=== PATIENT | male | born 1995 | race Caucasian/White ===

== ENCOUNTER 2018-12-07 08:38 | Emergency (ER) | payer SELFPAY ==
[~2018-12-07] VITALS: Ht 172.7 cm; Wt 129.2 kg
[2018-12-07 08:45] VITALS: BP 193/97; PULSE 96; RESP 20; Ht 172.7 cm; Wt 129.2 kg
[2018-12-07] MEDS ORDERED: ONDANSETRON 4 MG INJ IV STA (09:59)
[2018-12-07] MEDS ORDERED: SOD CHLORIDE 0.9% 1,000 ML IV ONE ×2 (10:00→12:30)
[2018-12-07] MEDS ORDERED: DIPHENHYDRAMINE 50 MG INJ IV ONE (11:00)
[2018-12-07] MEDS ORDERED: METOCLOPRAMIDE 10 MG INJ IV ONE (11:00)
[2018-12-07] MEDS ORDERED: LORAZEPAM 2 MG INJ IV ONE (12:30)
[2018-12-07] MEDS ORDERED: LORA-441 PO (14:33)
--- NOTE | 2018-12-07 16:31 | ERD ---
ER Documentation Chief Complaint Chief Complaint Complains of comiting after using marijauna last night HPI 23-year-old male patient with a past medical history of cannabis hyperemesis syndrome presents to the ED complaining of vomiting that started last night after using marijuana. Patient reports hot showers do not help with the symptoms. Denies any fever, chills, chest pain, shortness of breath. Reports that his abdominal pain is slightly diffuse and due to the vomiting. Denies any dysuria, urgency, frequency, hematuria. ROS All systems reviewed and are negative except as per history of present illness. Medications Home Meds Active Scripts Lorazepam* (Ativan*) 0.5 Mg Tablet, 0.5 MG PO Q8, #6 TAB Prov:ANAIS INGRAM PA-C 12/07/18 Allergies Allergies: Coded Allergies: No Known Allergy (Unverified , 12/07/18) PMhx/Soc History of Surgery: Yes (TONSILLECTOMY) Anesthesia Reaction: No Hx Neurological Disorder: No Hx Respiratory Disorders: Yes (ASTHMA) Hx Cardiac Disorders: No Hx Psychiatric Problems: Yes (DEPRESSION,ANXIETY) Hx Miscellaneous Medical Probl: No Hx Alcohol Use: Yes (OCCASSIONAL) Hx Substance Use: Yes (CANNABINOID) Smoking Status: Current some day smoker Physical Exam Vitals Vital Signs Date Temp Pulse Resp B/P (MAP) Pulse Ox O2 O2 Flow FiO2 Time Delivery Rate 12/07/18 98.0 96 20 193/97 100 08:45 (129) Physical Exam Const: [id number], well-nourished. In no acute distress. Head: Atraumatic, normocephalic Eyes: Normal Conjunctiva without injection. No purulent discharge. ENT: Normal external ear, nose. Moist oropharynx without tonsillar exudates. Non-erythematous pharynx. Uvula midline. No drooling. No trismus. Neck: No cervical midline tenderness. Full range of motion. No meningismus. No cervical lymphadenopathy. No JVD. Resp: Clear to auscultation bilaterally. No wheezing, rhonchi, rales, or crackles. No accessory muscle use. No retractions. Cardio: Regular rate and rhythm. No murmurs, rubs or gallops. Abd: Soft, nontender, non distended. Normal bowel sounds. No palpable masses. No rebound tenderness. No guarding. Negative McBurney's point. Negative psoas sign. Negative obturator sign. Skin: No petechiae or rashes Back: No midline tenderness. No CVA tenderness. Ext: No cyanosis, or edema. Neur: Awake and alert. Normal gait. Normal coordination. Psych: Normal Mood and Affect Results 24 hrs Laboratory Tests Test 12/07/18 10:05 White Blood Count 23.0 10^3/ul Red Blood Count 5.57 10^6/ul Hemoglobin 15.2 g/dl Hematocrit 44.8 % Mean Corpuscular Volume 80.4 fl Mean Corpuscular Hemoglobin 27.3 pg Mean Corpuscular Hemoglobin Concent 33.9 g/dl Red Cell Distribution Width 13.1 % Platelet Count 385 10^3/UL Mean Platelet Volume 10.5 fl Immature Granulocytes % 1.300 % Neutrophils % 73.4 % Lymphocytes % 16.8 % Monocytes % 7.6 % Eosinophils % 0.5 % Basophils % 0.4 % Nucleated Red Blood Cells % 0.0 /100WBC Immature Granulocytes # 0.310 10^3/ul Neutrophils # 16.9 10^3/ul Lymphocytes # 3.9 10^3/ul Monocytes # 1.7 10^3/ul Eosinophils # 0.1 10^3/ul Basophils # 0.1 10^3/ul Nucleated Red Blood Cells # 0.0 10^3/ul Urine Color STRAW Urine Clarity CLEAR Urine pH 5.0 Urine Specific Aptos 1.019 Urine Ketones 1+ mg/dL Urine Nitrite NEGATIVE mg/dL Urine Bilirubin NEGATIVE mg/dL Urine Urobilinogen NEGATIVE mg/dL Urine Leukocyte Esterase NEGATIVE Celine/ul Urine Microscopic RBC 0 /HPF Urine Microscopic WBC 0 /HPF Urine Hemoglobin 1+ mg/dL Urine Glucose NEGATIVE mg/dL Urine Total Protein NEGATIVE mg/dl Sodium Level 144 mmol/L Potassium Level 3.7 mmol/L Chloride Level 106 mmol/L Carbon Dioxide Level 15 mmol/L Anion Gap 23 Blood Urea Nitrogen 12 mg/dl Creatinine 0.67 mg/dl Est Glomerular Filtrat Rate mL/min > 60 mL/min Glucose Level 222 mg/dl Calcium Level 10.6 mg/dl Total Bilirubin 0.2 mg/dl Direct Bilirubin 0.00 mg/dl Indirect Bilirubin 0.2 mg/dl Aspartate Amino Transf (AST/SGOT) 30 IU/L Alanine Aminotransferase (ALT/SGPT) 31 IU/L Alkaline Phosphatase 114 IU/L Total Protein 8.3 g/dl Albumin 5.3 g/dl Globulin 3.00 g/dl Albumin/Globulin Ratio 1.76 Lipase 253 U/L Current Medications Medications Dose Sig/Sawyer Start Time Status Last (Trade) Ordered Route PRN Stop Time Admin Dose Reason Admin Ondansetron 4 mg ONCE STAT 12/07/18 DC 12/07/18 HCl (Zofran IV 09:59 10:11 Inj) 12/07/18 10:01 Sodium 1,000 ml @ Q1H ONCE 12/07/18 DC 12/07/18 Chloride 1,000 mls/hr IV 10:00 10:11 12/07/18 10:59 10 mg ONCE ONCE 12/07/18 DC 12/07/18 Metoclopramid IV 11:00 11:00 e HCl 12/07/18 11:01 (Reglan) 25 mg ONCE ONCE 12/07/18 DC 12/07/18 Diphenhydrami IV 11:00 11:00 ne HCl 12/07/18 11:01 (Benadryl) Sodium 1,000 ml @ Q1H ONCE 12/07/18 DC 12/07/18 Chloride 1,000 mls/hr IV 12:30 12:28 12/07/18 13:29 Lorazepam 1 mg ONCE ONCE 12/07/18 DC 12/07/18 (Ativan) IV 12:30 12:25 12/07/18 12:31 Procedures/MDM 23-year-old male patient with a past medical history of cannabis hyperemesis syndrome presents the ED complaining of vomiting that started last night. Patient is afebrile and nontoxic-appearing. Patient was initially given Zofran, Reglan and Benadryl with slight improvement of his symptoms. Patient was then given Ativan 1 mg IV with 2 L normal saline with improvement of his symptoms. CBC: No leukocytosis. No e/o of systemic infection. No e/o anemia. CMP: No e/o alkalosis, renal failure, diabetic ketoacidosis, liver disease. Some slight metabolic acidosis noted due to vomiting however patient hydrated and feels better. Patient has been observed here for 6 hours. Patient tolerated oral intake. Patient had a successful p.o. challenge. Lipase within normal limits. Patient has cannabis hyperemesis syndrome. Shows some dehydration however was given 2 L normal saline with improvement of his symptoms. Low suspicion for testicular torsion, gastritis, GERD, peptic ulcer disease, cholecystitis, choledocholithiasis, cholangitis, pancreatitis, appendicitis, bowel obstruction, ileus, volvulus, nephrolithiasis, pyelonephritis, hepatitis, perforated viscus, diverticulitis, abdominal hernia, acute abdomen, mesenteric ischemia or other emergent conditions. Discussed with my supervising physician, Dr. Ramon who agreed with the management discharge plan. Diagnosis: Cannabis hyperemesis syndrome Discharge medications: Ativan Follow up with primary care physician in 1-2 days. Instructed patient to return to the ED sooner for any worsening symptoms. Patient's questions were answered. Patient is hemodynamically stable. Patient understood and agreed with discharge plan. Patient discharged stable. Disclaimer: Inadvertent spelling and grammatical errors are likely due to EHR/dictation software use and do not reflect on the overall quality of patient care. Also, please note that the electronic time recorded on this note does not necessarily reflect the actual time of the patient encounter. Departure Diagnosis: Primary Impression: Cannabis hyperemesis syndrome concurrent with and due to canna... Condition: Stable Patient Instructions: Marijuana Abuse, Vomiting (6Y-Adult) Referrals: COMMUNITY CLINICS YOU HAVE RECEIVED A MEDICAL SCREENING EXAM AND THE RESULTS INDICATE THAT YOU DO NOT HAVE A CONDITION THAT REQUIRES URGENT TREATMENT IN THE EMERGENCY DEPARTMENT. FURTHER EVALUATION AND TREATMENT OF YOUR CONDITION CAN WAIT UNTIL YOU ARE SEEN IN YOUR DOCTORS OFFICE WITHIN THE NEXT 1-2 DAYS. IT IS YOUR RESPONSIBILITY TO MAKE AN APPOINTMENT FOR FOLOW-UP CARE. IF YOU HAVE A PRIMARY DOCTOR --you should call your primary doctor and schedule an appointment IF YOU DO NOT HAVE A PRIMARY DOCTOR YOU CAN CALL OUR PHYSICIAN REFERRAL HOTLINE AT IF YOU CAN NOT AFFORD TO SEE A PHYSICIAN YOU CAN CHOSE FROM THE FOLLOWING [facility] CLINICS [facility] [address] [facility] [address] [facility]. [facility] [address] [facility] [address] [facility] [address] [facility] [address] [facility]. [facility] YOU HAVE RECEIVED A MEDICAL SCREENING EXAM AND THE RESULTS INDICATE THAT YOU DO NOT HAVE A CONDITION THAT REQUIRES URGENT TREATMENT IN THE EMERGENCY DEPARTMENT. FURTHER EVALUATION AND TREATMENT OF YOUR CONDITION CAN WAIT UNTIL YOU ARE SEEN IN YOUR DOCTORS OFFICE WITHIN THE NEXT 1-2 DAYS. IT IS YOUR RESPONSIBILITY TO MAKE AN APPOINTMENT FOR FOLOW-UP CARE. IF YOU HAVE A PRIMARY DOCTOR --you should call your primary doctor and schedule and appointment IF YOU DO NOT HAVE A PRIMARY DOCTOR YOU CAN CALL OUR PHYSICIAN REFERRAL HOTLINE AT . IF YOU CAN NOT AFFORD TO SEE A PHYSICIAN YOU CAN CHOSE FROM THE FOLLOWING [facility], [facility] INSTITUTIONS: [facility] [address] [place] [address] [facility] [address] [place] [address] [facility] [address] [place] [address] [facility] Additional Instructions: Call your primary care doctor TOMORROW for an appointment during the next 2-3 days.See the doctor sooner or return here if your condition worsens before your appointment time. You have been given a medicine which may cause drowsiness.DO NOT DRIVE OR OPERATE DANGEROUS MACHINERY while taking this medicine! ANAIS INGRAM PA-C Dec 07, 2018 16:31
== END 2018-12-07 14:49 | disposition home or self-care (01) ==
LOC: FTE 08:38
DX: F12.90 Cannabis use, unspecified, uncomplicated (principal); J45.909 Unspecified asthma, uncomplicated; F17.210 Nicotine dependence, cigarettes, uncomplicated
CPT/HCPCS: 36415; 80053; 81001; 83690; 85025; 96361; 96374; 96375; 99284; J1200; J2060; J2405; J2765; J7030

== ENCOUNTER 2018-12-07 20:02 | Emergency (ER) | payer SELFPAY ==
[~2018-12-07] VITALS: Wt 122.0 kg
[~2018-12-07 20:02] MED LIST: LORA-441 PO
[2018-12-07] MEDS ORDERED: CAPSAICIN 0.025% 60 GM CR TOP STA ×2 (21:24→21:36)
[2018-12-07] MEDS ORDERED: SOD CHLORIDE 0.9% 1,000 ML IV STA (21:24)
[2018-12-07] MEDS ORDERED: DEXTROSE 5%-0.45% NACL 500 ML BAG IV ONE (21:30)
--- NOTE | 2018-12-07 21:31 | ERD ---
ER Documentation Chief Complaint Chief Complaint NAUSEA AND VOMITING WITH GEN ABD PAIN. NO RELEIF WITH ATIVAN AND ZOFRAN HPI 23-year-old male with no reported past medical surgical history, daily marijuana smoker with history of cannabinoid associated hyperemesis presents with persistent nausea and vomiting as well as generalized abdominal pain. Patient was seen in this ED earlier for similar symptoms and discharge. Patient states he got home took Zofran and Ativan but his symptoms persisted with worsening nonbilious nonbloody vomiting as well as worsening generalized abdominal pain. He denies smoking since he returned home and reports last marijuana use yesterday. Has not been able to hold down any food or liquids and reports not eating all day. ROS All systems reviewed and are negative except as per history of present illness. Medications Home Meds Active Scripts Lorazepam* (Ativan*) 0.5 Mg Tablet, 0.5 MG PO Q8, #6 TAB Prov:ANAIS INGRAM PA-C 12/07/18 Allergies Allergies: Coded Allergies: No Known Allergy (Unverified , 12/07/18) PMhx/Soc History of Surgery: Yes (TONSILLECTOMY) Anesthesia Reaction: No Hx Neurological Disorder: No Hx Respiratory Disorders: Yes (ASTHMA) Hx Cardiac Disorders: No Hx Psychiatric Problems: Yes (DEPRESSION,ANXIETY) Hx Miscellaneous Medical Probl: Yes (CANIBINOID HYPEREMESIS) Hx Alcohol Use: Yes (OCCASSIONAL) Hx Substance Use: Yes (MARIJUANA) Hx Tobacco Use: No Smoking Status: Never smoker Physical Exam Vitals Vital Signs Date Temp Pulse Resp B/P (MAP) Pulse Ox O2 O2 Flow FiO2 Time Delivery Rate 12/08/18 98.1 95 20 140/79 99 Room Air 00:36 (99) 12/07/18 98.2 94 20 150/81 99 20:11 (104) Physical Exam Const: mild distress, retching Head: Atraumatic Eyes: Normal Conjunctiva ENT: Normal External Ears, Nose and Mouth. Neck: Full range of motion. No meningismus. Resp: Clear to auscultation bilaterally Cardio: Regular rate and rhythm, no murmurs Abd: Soft, tenderness to epigastrium, non distended. Normal bowel sounds, no rebound or guarding Skin: No petechiae or rashes,, good cap refill Back: No midline or flank tenderness Ext: No cyanosis, or edema Neur: Awake and alert Psych: Normal Mood and Affect Results 24 hrs Current Medications Medications Dose Sig/Sawyer Start Time Status Last (Trade) Ordered Route PRN Stop Time Admin Dose Reason Admin Sodium 1,000 ml @ Q1H STAT 12/07/18 DC 12/07/18 Chloride 1,000 mls/hr IV 21:24 21:34 12/07/18 22:23 Haloperidol 5 mg ONCE ONCE 12/07/18 DC 12/07/18 (Haldol) IM 21:30 22:00 12/07/18 21:31 Capsaicin 1 applic ONCE STAT 12/07/18 DC (Theragen) TOP 21:24 12/07/18 21:26 500 ml ONCE ONCE 12/07/18 DC 12/07/18 Dextrose/Sodi IV 21:30 22:00 um Chloride 12/07/18 21:31 (D5-1/2ns) Capsaicin 1 applic ONCE STAT 12/07/18 DC 12/07/18 (Theragen) TOP 21:36 21:46 12/07/18 21:37 Procedures/MDM 23 yo male who presents with persistent N/V, abdominal pain likely related to cannabis overuse. Patient was earlier seen in ED and returned secondary to pers istent N/V. His evaluation has not identified a emergent etiology for the abdominal pain. Specifically, given the very benign exam, normal laboratory studies, and lack of significant risk factors, I have a very low suspicion for appendicitis, ischemic bowel, bowel perforation, or any other life threatening disease. ED course: IVF's Capsaicin Haldol Pain Rx Reassesment: Patient with resolution of symptoms within 3 hours after treatment. No longer vomiting and with resolution of abdominal pain and discomfort. He is euvolemic and tolerating PO at time of discharge I have discussed with the patient the level of uncertainty with undifferentiated abdominal pain and clearly explained the need to follow-up as noted on the discharge instructions, or return to the Emergency Department immediately if the pain worsens, develops fever, persistent and uncontrollable vomiting, or for any new symptoms or concerns. I discussed with the patient that this presentation today for abdominal pain could represent a significant risk for an acute abdominal process. Although the tests in the ED were essentially normal, there is still a possibility of a process such as appendicitis, diverticulitis, cholecystitis, ulcer, early bowel obstruction, mesenteric ischemia, kidney stone, or even kidney infection which could subsequently cause disability or . Dispo: Strict return precautions, follow up with PMD Departure Condition: Stable ODILON DELGADO PA-C Dec 07, 2018 21:31
[2018-12-07] MEDS: HALOPERIDOL 5 MG INJ IM ONE ×2 (21:46→22:00)
[2018-12-08 00:36] VITALS: BP 140/79; PULSE 95; RESP 20
== END 2018-12-08 00:39 | disposition home or self-care (01) ==
LOC: FTE 20:02
DX: R11.2 Nausea with vomiting, unspecified (principal); J45.909 Unspecified asthma, uncomplicated
CPT/HCPCS: 96372; 99284; J1630; J7030